=== PATIENT | male | born 1965 | race Caucasian/White ===

== ENCOUNTER 2025-02-22 14:53 | Emergency (ER) | payer OTHER, SELFPAY ==
--- NOTE | 2025-02-22 15:10 | EDNOTE_ITS ---
ED General RME/HPI General Chief complaint: Allergic Reaction Stated complaint: ALLERGIC REACTION Time Seen by Provider: 02/22/25 15:09 Arrival date/time: 02/22/25 14:53 CC: Bee sting to the left face HPI onset while driving, patient became mildly confused amount of vomiting. EMS arrived on scene was actively vomiting they gave small amount of Benadryl at which time the patient vomiting resolved patient states she does not recall the events , upon arrival the patient is awake alert oriented nontoxic-appearing not in any acute distress with mild pain to the left cheek with an obvious raised area. Patient denies nausea vomiting chest pain or shortness of breath. EMS reported the patient has been working in the sun all day with very little fluids. Related Data Previous Rx's ?Medication ?Instructions ?Recorded diphenhydramine HCl 25 mg tablet 25 mg PO TID #20 tabs 02/22/25 (Benadryl Allergy) famotidine 20 mg tablet 20 mg PO BID #14 tabs prednisone 20 mg tablet See Taper PO BID 3 days #6 t abs 02/22/25 Allergies Allergy/AdvReac Type Severity Reaction Status Date / Time bee venom protein (honey bee) AdvReac Severe Anaphylaxis Verified 02/22/25 15:35 Review of Systems Review of Systems Narrative Review of Systems: GEN: No fever, no chills, no weight loss EYES: No discharge, no visual changes, no pain HEENT: No ear pain, no congestion, no sore throat PULM: No shortness of breath, no cough, no congestion CV: No chest pain, no dyspnea on exertion, no palpitations GI: No nausea, no vomiting, no diarrhea, no pain, no constipation : No frequency, no urgency, no dysuria MUSC/SKEL: No joint pain, no back pain SKIN: No rash PSYCH: No hallucinations, no depression HEME/LYMPH: No easy bleeding or bruising tendencies NEURO: No weakness, no headache ED Exam Narrative Physical exam: [General: Not in any acute distress Head normocephalic HEENT: Face: The patient has a small small bulla to the left cheek surrounding erythema very small center puncture site with surrounding blanching. No itch no streaking no open lesions no oozing. All other subsystems of HEENT are within acceptable limits Neck is supple nontender Chest equal chest rise nontender to palpation Respiratory: Clear to auscultation no wheezes crackles or rubs CV: Rate rhythm is regular no murmurs rubs or clicks Abdomen is distended secondary to body habitus soft nontender no masses positive bowel sounds all 4 quadrants Back: No CVA tenderness no spinous process tenderness from cervical spine thoracic and lumbar spine Skin: See HEISRAEL's for description on cheek intact no petechiae rash induration ulceration or crepitus Extremities: Moving all extremity against resistance cap refill less than 2 seconds neurosensory intact Neuro: Awake alert oriented x3 Glascow coma 15 no focal deficits] Course Course Course Narrative: Reevaluation of the patient at 1800 shows that the patient has mild hives of the axilla and anywhere else on the body where he comes in contact with clothing such as the inner portion of the knees, the sock lining in the low abdomen where his small pannus overlaps. They have begun to fade. The patient's lump to the side of the face is almost completely as resolved there remains some mild erythema. Patient has no stridor shortness of breath difficulty breathing is speaking in full sentences with stable vital signs. This time the patient will be discharged home on famotidine as prednisone and Benadryl. Quality Measures none Orders Category Date Time Status Saline [Insert IV] NOW Care 02/22/25 15:10 Active MethylPREDNISolone.* [SoluMEDROL Inj] Med 02/22/25 16:50 Discontinued 125 mg IVP X1 ONE Sodium Chloride 0.9% 1000 ml [Ns] 1,000 ml Med 02/22/25 15:10 Discontinued IV 999 mls/hr Vital Signs Vital signs: Vital Signs Temperature 97.4 F 02/22/25 15:19 Pulse Rate 90 02/22/25 15:19 Respiratory Rate 18 02/22/25 15:19 Blood Pressure 113/65 02/22/25 15:19 Pulse Oximetry (%) 97 02/22/25 15:19 Oxygen Delivery Method Room Air 02/22/25 15:19 Discharge Plan Plan Patient Disposition: HOME (Self Care) Patient condition on transfer: Stable Prescriptions/Referrals Prescriptions/Med Rec: New prednisone 20 mg tablet See Taper PO BID 3 Days Qty: 6 0RF Taper: Prednisone Taper 20 mg DAILY for 2 Days and 0 Hour 10 mg DAILY for 2 Days and 0 Hour 5 mg DAILY for 7 Days and 0 Hour famotidine 20 mg tablet 20 mg PO BID Qty: 14 0RF diphenhydramine HCl [Benadryl Allergy] 25 mg tablet 25 mg PO TID Qty: 20 0RF Referrals: Franklyn (VALERIA)Ruth FNP [Primary Care Provider] - In 1 week Problem List Clinical Impression: Anaphylactic reaction to bee sting Patient/Caregiver Discharge Instructions Other Activity Instructions:: Take the medications as prescribed and please know you may have an increased in your glucose level. Follow-up with your primary care doctor if is a worsening of symptoms including hives to the face or neck shortness of breath or wheezing when you breathe return immediately to the emergency room for reevaluation. Education Materials: ED BEE STING General Allergic Rxn Print Language: Swedish Stand Alone Forms: Paige Award Info., Patient Portal Info Letter, Work/School Release ROL[place] Supervising Physician ROL[place] Supervising Physician: Kenny Chris ENP [facility] Clinical Information Provided by: patient and EMS Medical Records reviewed [facility] and EMS Meds/Rx considered, not ordered None Labs/Rad/Tests considered, not ordered None Medication Administration(s) Medication Administration History Discontinued Medications Sodium Chloride (Ns) 1,000 mls @ 999 mls/hr IV .Q1H1M ONE Stop: 02/22/25 16:10 Last Admin: 02/22/25 16:00 Dose: 999 mls/hr Documented By: KEV Methylprednisolone Sodium Succinate (Methylprednisolone Sod Succ 62.5 Mg/Ml 2ml Vial) 125 mg IVP X1 ONE Stop: 02/22/25 16:51 Last Admin: 02/22/25 16:58 Dose: 125 mg Documented By: NATHALY
[2025-02-22 15:19] VITALS: BP 113/65; PULSE 90; RESP 18; TEMP 36.3; O2SAT 97
[2025-02-22 15:21] VITALS: PULSE 93; RESP 20; O2SAT 97
[2025-02-22 15:49] VITALS: BMI 25.1
[2025-02-22] MEDS: SODIUM CHLORIDE 0.9% 1000 ML 1,000 ML 999 ML IV (16:00)
[2025-02-22] MEDS: MethylPREDNISolone SOD SUCC 62.5 MG/ML 2ML VIAL 125 MG IVP (16:58)
[2025-02-22 17:01] VITALS: BP 146/81; PULSE 109; RESP 26; O2SAT 99
[2025-02-22 18:05] VITALS: BP 142/78; PULSE 113; RESP 23; TEMP 37.5; O2SAT 98
== END 2025-02-22 19:20 | disposition home or self-care (01) ==
PROVIDERS: Emergency Provider Emergency Medicine; PCP Nurse Practitioner Primary Care
DX: T63.441A Toxic effect of venom of bees, accidental (unintentional), initial encounter (principal); T78.2XXA Anaphylactic shock, unspecified, initial encounter; X58.XXXA Exposure to other specified factors, initial encounter
CPT/HCPCS: 96361; 96374; 99284; J2919; J7030